=== PATIENT | female | born 1955 | race Caucasian/White ===

== ENCOUNTER 2016-11-09 21:01 | Emergency (ER) | payer OTHER ==
[~2016-11-09] VITALS: Ht 160 cm; Wt 51.7 kg
[~2016-11-09 21:01] MED LIST: MUCINEX DM 30/61 TAB PO; NICODERM21 MG/24 H TD; NKHM; PREDNISONE10 MG PO; PROAIR HFA0.09 MG/AC IH; SYMBICORT1 AE1 IH; ZITHROMAX Z-PA250 MG PO
[2016-11-09 23:31] LABS: BASO # 0.2 10*3/uL (0.0-0.1); BASO % 0.8 % (0.0-1.0); EOS # 0.1 10*3/uL (0.0-0.4); EOS % 0.4 % (1.0-4.0); HEMATOCRIT 41.5 % (37.0-47.0); HEMOGLOBIN 14.3 g/dl (12.0-16.0); IG # 0.1 10*3/uL (0.0-0.1); LYMPH # 1.7 10*3/uL (1.3-4.4); LYMPH % 9.5 % (27.0-41.0); MEAN CELL VOLUME 90.8 fl (81.0-99.0); MEAN CORPUSCULAR HGB 31.3 pg (27.0-31.0); MEAN CORPUSCULAR HGB CONC 34.5 g/dl (33.0-37.0); MEAN PLATELET VOLUME 8.9 fl (9.6-12.3); MONO % 5.4 % (3.0-9.0); NEUT # 14.9 10*3/uL (2.3-7.9); NEUT % 83.5 % (47.0-73.0); PLATELET COUNT AUTOMATED 404 10*3/uL (130-400); RED BLOOD COUNT 4.57 10*6/uL (4.10-5.10); WHITE BLOOD COUNT 17.8 10*3/uL (4.8-10.8)
[2016-11-09 23:44] LABS: BUN 5 mg/dl (7-24); CARBON DIOXIDE 28 mmol/L (21-32); CHLORIDE 94 mmol/L (98-107); EST GLOM FILT AFRICAN AMERICAN > 60 ml/min; POTASSIUM 3.3 mmol/L (3.5-5.1); SODIUM 130 mmol/L (136-145)
[2016-11-09 23:45] LABS: GLUCOSE 148 mg/dL (65-99)
== END 2016-11-10 02:41 | disposition short-term general hospital (02) ==
LOC: ED 21:01
PROVIDERS: Emergency Medicine Emergency Medical Services
DX: T18.108A Unspecified foreign body in esophagus causing other injury, initial encounter (principal); F17.200 Nicotine dependence, unspecified, uncomplicated; Z79.899 Other long term (current) drug therapy; X58.XXXA Exposure to other specified factors, initial encounter; Y93.89 Activity, other specified; Y92.9 Unspecified place or not applicable; Y99.9 Unspecified external cause status

== ENCOUNTER 2016-11-13 16:56 | Emergency (ER) | payer OTHER ==
[~2016-11-13] VITALS: Wt 37.6 kg
[2016-11-13] MEDS ORDERED: BREO ELLIPTA 11 EACH INH (17:19)
[2016-11-13] MEDS ORDERED: NOVAPLUS V0.09 MG/Ac INH (17:19)
[2016-11-13] MEDS ORDERED: TRAMADOL HCL50 MG PO (18:47)
== END 2016-11-13 20:46 | disposition home or self-care (01) ==
LOC: ED 16:56
DX: S42.021A Displaced fracture of shaft of right clavicle, initial encounter for closed fracture (principal); M25.511 Pain in right shoulder; M25.521 Pain in right elbow; F17.200 Nicotine dependence, unspecified, uncomplicated; W06.XXXA Fall from bed, initial encounter; Y93.89 Activity, other specified; Y92.89 Other specified places as the place of occurrence of the external cause; Y99.8 Other external cause status

== ENCOUNTER → 2016-11-18 | Outpatient (CLI) | payer OTHER ==
[~2016-11-18] MED LIST changes: +BREO ELLIPTA 11 EACH INH; +NOVAPLUS V0.09 MG/Ac INH; +TRAMADOL HCL50 MG PO
== END | disposition home or self-care (01) ==
LOC: ORTHO 12:07 → LAB 12:07
DX: M85.80 Other specified disorders of bone density and structure, unspecified site (principal)

== ENCOUNTER → 2016-12-17 | Outpatient (CLI) | payer OTHER | END | disposition home or self-care (01) | LOC: ORTHO 13:08 | DX: S42.024D Nondisplaced fracture of shaft of right clavicle, subsequent encounter for fracture with routine healing (principal); X58.XXXD Exposure to other specified factors, subsequent encounter ==

== ENCOUNTER → 2017-01-15 | Outpatient (CLI) | payer OTHER | END | disposition home or self-care (01) | LOC: ORTHO 02:25 | DX: S42.001D Fracture of unspecified part of right clavicle, subsequent encounter for fracture with routine healing (principal); X58.XXXD Exposure to other specified factors, subsequent encounter ==

== ENCOUNTER → 2017-02-12 | Outpatient (CLI) | payer OTHER | END | disposition home or self-care (01) | LOC: ORTHO 03:41 | DX: S42.021D Displaced fracture of shaft of right clavicle, subsequent encounter for fracture with routine healing (principal); X58.XXXD Exposure to other specified factors, subsequent encounter ==

== ENCOUNTER → 2017-03-12 | Outpatient (CLI) | payer OTHER | END | disposition home or self-care (01) | LOC: ORTHO 00:55 | DX: S42.024D Nondisplaced fracture of shaft of right clavicle, subsequent encounter for fracture with routine healing (principal); X58.XXXD Exposure to other specified factors, subsequent encounter ==

== ENCOUNTER → 2017-03-24 | Outpatient (CLI) | payer OTHER | END | disposition home or self-care (01) | LOC: RESCLI 01:45 | DX: J44.9 Chronic obstructive pulmonary disease, unspecified (principal); E55.9 Vitamin D deficiency, unspecified; R63.6 Underweight; I10 Essential (primary) hypertension; Z72.0 Tobacco use; Z71.6 Tobacco abuse counseling; H40.9 Unspecified glaucoma ==

== ENCOUNTER → 2017-04-13 | Outpatient (CLI) | payer OTHER | END | disposition home or self-care (01) | LOC: RESCLI 01:20 | DX: I10 Essential (primary) hypertension (principal); J44.9 Chronic obstructive pulmonary disease, unspecified; H40.9 Unspecified glaucoma; R63.6 Underweight; E55.9 Vitamin D deficiency, unspecified; Z71.6 Tobacco abuse counseling; Z72.0 Tobacco use ==

== ENCOUNTER → 2017-05-05 | Outpatient (CLI) | payer OTHER | END | disposition home or self-care (01) | LOC: ORTHO 00:58 | DX: S42.024D Nondisplaced fracture of shaft of right clavicle, subsequent encounter for fracture with routine healing (principal); X58.XXXD Exposure to other specified factors, subsequent encounter ==

== ENCOUNTER 2017-05-17 17:43 | Emergency (ER) | payer OTHER ==
[~2017-05-17] VITALS: Wt 36.3 kg
== END 2017-05-17 19:26 | disposition left against medical advice (07) ==
LOC: ED 17:43
DX: R53.1 Weakness (principal); R55 Syncope and collapse; F17.200 Nicotine dependence, unspecified, uncomplicated; Z98.42 Cataract extraction status, left eye; Z98.41 Cataract extraction status, right eye; Z79.899 Other long term (current) drug therapy

== ENCOUNTER → 2017-05-27 | Outpatient (CLI) | payer OTHER | END | disposition home or self-care (01) | LOC: ORTHO 09:09 → RAD 09:09 | DX: S42.021D Displaced fracture of shaft of right clavicle, subsequent encounter for fracture with routine healing (principal); M81.8 Other osteoporosis without current pathological fracture; M25.811 Other specified joint disorders, right shoulder; X58.XXXD Exposure to other specified factors, subsequent encounter ==

== ENCOUNTER → 2017-07-08 | Outpatient (CLI) | payer OTHER | END | disposition home or self-care (01) | LOC: ORTHO 07:46 | DX: S42.001D Fracture of unspecified part of right clavicle, subsequent encounter for fracture with routine healing (principal); R60.9 Edema, unspecified; X58.XXXD Exposure to other specified factors, subsequent encounter ==

== ENCOUNTER → 2017-07-08 | Outpatient (CLI) | payer OTHER | END | disposition home or self-care (01) | LOC: RESCLI 08:39 | DX: S42.024S Nondisplaced fracture of shaft of right clavicle, sequela (principal); S42.021S Displaced fracture of shaft of right clavicle, sequela; X58.XXXS Exposure to other specified factors, sequela ==

== ENCOUNTER → 2017-10-06 | Outpatient (CLI) | payer OTHER | END | disposition home or self-care (01) | LOC: RESCLI 01:26 | DX: I10 Essential (primary) hypertension (principal); J44.9 Chronic obstructive pulmonary disease, unspecified; E55.9 Vitamin D deficiency, unspecified; H40.9 Unspecified glaucoma; F17.210 Nicotine dependence, cigarettes, uncomplicated; R63.6 Underweight ==

== ENCOUNTER → 2018-01-06 | Outpatient (CLI) | payer OTHER | END | disposition home or self-care (01) | LOC: RESCLI 04:16 | DX: J44.9 Chronic obstructive pulmonary disease, unspecified (principal); I10 Essential (primary) hypertension; E55.9 Vitamin D deficiency, unspecified; R63.6 Underweight; F17.210 Nicotine dependence, cigarettes, uncomplicated; H91.13 Presbycusis, bilateral; Z53.20 Procedure and treatment not carried out because of patient's decision for unspecified reasons; Z71.6 Tobacco abuse counseling; Z79.899 Other long term (current) drug therapy ==

== ENCOUNTER → 2018-04-02 | Outpatient (CLI) | payer OTHER | END | disposition home or self-care (01) | LOC: RESCLI 01:03 | DX: J44.9 Chronic obstructive pulmonary disease, unspecified (principal); I10 Essential (primary) hypertension; H40.9 Unspecified glaucoma; I73.9 Peripheral vascular disease, unspecified; R63.6 Underweight; E55.9 Vitamin D deficiency, unspecified; R20.2 Paresthesia of skin; F17.200 Nicotine dependence, unspecified, uncomplicated; Z71.6 Tobacco abuse counseling; Z79.899 Other long term (current) drug therapy ==

== ENCOUNTER → 2018-04-05 | Outpatient (CLI) | payer OTHER ==
[2018-04-05 13:27] LABS: BASO # 0.2 10*3/uL (0.0-0.1); BASO % 2.1 % (0.0-1.0); EOS # 0.4 10*3/uL (0.0-0.4); EOS % 5.2 % (1.0-4.0); HEMOGLOBIN 11.6 g/dl (12.0-16.0); LYMPH # 1.9 10*3/uL (1.3-4.4); LYMPH % 25.8 % (27.0-41.0); MEAN CELL VOLUME 98.1 fl (81.0-99.0); MEAN CORPUSCULAR HGB 31.6 pg (27.0-31.0); MEAN CORPUSCULAR HGB CONC 32.2 g/dl (33.0-37.0); MEAN PLATELET VOLUME 8.3 fl (9.6-12.3); MONO # 0.6 10*3/uL (0.1-1.0); NEUT # 4.4 10*3/uL (2.3-7.9); NEUT % 58.6 % (47.0-73.0); PLATELET COUNT AUTOMATED 607 10*3/uL (130-400); RED BLOOD COUNT 3.67 10*6/uL (4.10-5.10); RED CELL DISTRI WIDTH 14.7 % (0-14.5); WHITE BLOOD COUNT 7.5 10*3/uL (4.8-10.8)
[2018-04-05 13:49] LABS: BUN 6 mg/dl (7-24); CHLORIDE 102 mmol/L (98-107); CHOLESTEROL 233 mg/dL (<200); CREATININE 0.63 mg/dL (0.55-1.02); HDL CHOLESTEROL 54 mg/dl (40-60); LDL CHOLESTEROL 148 mg/dL (9-159); POTASSIUM 4.1 mmol/L (3.5-5.1); SODIUM 133 mmol/L (136-145); TRIGLYCERIDES 156 mg/dl (<150); VLDL CHOLESTEROL 31 mg/dL (6-40)
== END | disposition home or self-care (01) ==
LOC: LAB 12:47
PROVIDERS: Internal Medicine
DX: I10 Essential (primary) hypertension (principal); E55.9 Vitamin D deficiency, unspecified; I73.9 Peripheral vascular disease, unspecified; R20.2 Paresthesia of skin; J44.9 Chronic obstructive pulmonary disease, unspecified; Z79.899 Other long term (current) drug therapy

== ENCOUNTER → 2018-04-09 | Outpatient (CLI) | payer OTHER ==
[~2018-04-09] MED LIST changes: +AMOXICILLIN500 M2 PO; +FLUCONAZOLE100 MG PO; +Ipratropium Brom3 ML NEB; +LEVOFLOXACIN500 MG PO; +LIPITOR10 MG PO; +MUCINEX ER600 MG PO; +PRINIVIL10 MG PO
== END | disposition home or self-care (01) ==
LOC: RESCLI 03:30
DX: I73.9 Peripheral vascular disease, unspecified (principal); I10 Essential (primary) hypertension; J44.9 Chronic obstructive pulmonary disease, unspecified; E55.9 Vitamin D deficiency, unspecified; E78.2 Mixed hyperlipidemia; F17.210 Nicotine dependence, cigarettes, uncomplicated; Z71.6 Tobacco abuse counseling; Z79.899 Other long term (current) drug therapy

== ENCOUNTER 2018-04-18 23:43 | Inpatient (IN) | payer OTHER ==
[~2018-04-18] VITALS: Ht 144.8 cm; Wt 34.0 kg
--- NOTE | ~2018-04-18 | EKG ---
[place], [place] ELECTROCARDIOGRAM REPORT NAME: JARAD SO UNIT #: [id number] ROOM: 421 DOCTOR: PRAFUL DRAFT REPORT BIRTHDATE: [address] [facility] Test Date: 2018-04-19 Test Time: 00:01:55 Pat Name: JARAD SO Department: Room: 421 Gender: F Healthcare Receptionist: Tunde Patricia : 1955 Requested By: SANDRA BRIGGS Order Number: [id number] Reading MD: Zeinab Torres MD Measurements Intervals [place] Rate: 116 P: 82 AL: 165 QRS: 7 QRSD: 76 T: 64 QT: 285 QTc: 396 Interpretive Statements Sinus tachycardia Anterior infarct, old Electronically Signed On 04-19-2018 7:54:09 PST by Zeinab Torres MD CM:EKGRPT:ELECTROCARDIOGRAM REPORT [id number] SANDRA PEREZ DRAFT REPORT SANDRA BRIGGS DO
[~2018-04-18 23:43] MED LIST changes: -AMOXICILLIN500 M2 PO; -FLUCONAZOLE100 MG PO; -Ipratropium Brom3 ML NEB; -LEVOFLOXACIN500 MG PO; -LIPITOR10 MG PO; -MUCINEX ER600 MG PO; -PRINIVIL10 MG PO
[2018-04-18 23:48] VITALS: BP 175/83
[2018-04-18] MEDS ORDERED: PRINIVIL10 MG PO (23:56)
[2018-04-18] MEDS ORDERED: LIPITOR10 MG PO (23:57)
[2018-04-18] MEDS ORDERED: AMOXICILLIN500 M2 PO (23:58)
[2018-04-19] VITALS (11 sets, daily range): BP systolic 88–154; BP diastolic 50–77
[2018-04-19 00:11] LABS: BASO # 0.1 10*3/uL (0.0-0.1); BASO % 0.9 % (0.0-1.0); EOS # 0.3 10*3/uL (0.0-0.4); HEMATOCRIT 34.1 % (37.0-47.0); HEMOGLOBIN 11.5 g/dl (12.0-16.0); MEAN CELL VOLUME 96.1 fl (81.0-99.0); MEAN CORPUSCULAR HGB 32.4 pg (27.0-31.0); MEAN CORPUSCULAR HGB CONC 33.7 g/dl (33.0-37.0); MEAN PLATELET VOLUME 8.5 fl (9.6-12.3); MONO % 7.4 % (3.0-9.0); NEUT # 9.9 10*3/uL (2.3-7.9); NEUT % 74.4 % (47.0-73.0); PLATELET COUNT AUTOMATED 501 10*3/uL (130-400); RED BLOOD COUNT 3.55 10*6/uL (4.10-5.10); RED CELL DISTRI WIDTH 14.5 % (0-14.5); WHITE BLOOD COUNT 13.3 10*3/uL (4.8-10.8)
--- NOTE | 2018-04-19 00:11 | NUR ---
PT STATES "I FEEL LIKE I CAN BREATH FINALLY"
[2018-04-19 00:21] LABS: ACT PARTIAL THROMBO TIME 26.5 SECONDS (20.8-31.5); INTERNATIONAL NORM RATIO 0.9 (2.0-3.5)
[2018-04-19 00:28] LABS: ALBUMIN 3.6 gm/dl (3.1-4.5); ALKALINE PHOSPHATASE 125 U/L (45-117); BUN 5 mg/dl (7-24); CHLORIDE 93 mmol/L (98-107); POTASSIUM 3.4 mmol/L (3.5-5.1); SGOT/AST 28 IU/L (3-35); SGPT/ALT 16 U/L (12-78); SODIUM 127 mmol/L (136-145); TOTAL PROTEIN 7.7 gm/dL (6.4-8.2)
[2018-04-19 00:30] LABS: TROPONIN I < 0.015 ng/ml (<0.045)
[2018-04-19 01:42] LABS: ABG BASE EXCESS -4.6 mmol/L (-2.0-2.0); ABG HCO3 20.3 mmol/l (22-26); ABG O2 SATURATION 75.5 % (95-97); ARTERIAL BLOOD GAS PH 7.336 (7.35-7.45); ARTERIAL BLOOD GAS PO2 45.2 mmHg (80-90)
--- NOTE | 2018-04-19 01:51 | NUR ---
PATIENT TO CT AT THIS TIME.
--- NOTE | 2018-04-19 02:44 | NUR ---
IV SITE TO LEFT AC LEAKING. SITE REMOVED AND NEW SITE INITIATED.
--- NOTE | 2018-04-19 04:25 | NUR ---
A 62, admitted to , under the services of SARITA Tapia DO with a diagnosis of COPD. Chief complaint is SOB, COUGH. Patient arrived via stretcher from ER. Monitor applied. Initial assessment completed. Vital signs taken and recorded. SARITA TAPIA DO notified of admission to the unit. Orders received. See assessment for past medical history, medications and allergies. Patient and/or family oriented to unit. [facility]. Clothing/patient valuable form completed. MARK ORTEGA
--- NOTE | 2018-04-19 04:45 | NUR ---
HOME MEDS UPDATED WITH PT
--- NOTE | 2018-04-19 05:00 | NUR ---
DR MARTINEZ NOTIFIED OF CRITICAL TROPONIN
[2018-04-19 06:29] LABS: HEMATOCRIT 30.7 % (37.0-47.0); HEMOGLOBIN 10.4 g/dl (12.0-16.0); MEAN CELL VOLUME 96.5 fl (81.0-99.0); MEAN CORPUSCULAR HGB 32.7 pg (27.0-31.0); MEAN CORPUSCULAR HGB CONC 33.9 g/dl (33.0-37.0); MEAN PLATELET VOLUME 8.5 fl (9.6-12.3); PLATELET COUNT AUTOMATED 434 10*3/uL (130-400); RED BLOOD COUNT 3.18 10*6/uL (4.10-5.10); RED CELL DISTRI WIDTH 14.4 % (0-14.5); WHITE BLOOD COUNT 8.8 10*3/uL (4.8-10.8)
--- NOTE | 2018-04-19 06:35 | NUR ---
CALLED DR HOPPER ANSWERING SERVICE REGARDING NEW CONSULT
[2018-04-19 06:47] LABS: ALKALINE PHOSPHATASE 96 U/L (45-117); BUN 5 mg/dl (7-24); CHLORIDE 97 mmol/L (98-107); CHOLESTEROL 147 mg/dL (<200); CREATININE 0.54 mg/dL (0.55-1.02); FREE T4 0.92 ng/dl (0.76-1.46); HDL CHOLESTEROL 68 mg/dl (40-60); LDL CHOLESTEROL 72 mg/dL (9-159); PHOSPHOROUS 2.7 mg/dL (2.5-4.9); SGOT/AST 23 IU/L (3-35); SGPT/ALT 17 U/L (12-78); SODIUM 128 mmol/L (136-145); TOTAL PROTEIN 6.6 gm/dL (6.4-8.2); TRIGLYCERIDES 37 mg/dl (<150); VLDL CHOLESTEROL 7 mg/dL (6-40)
[2018-04-19 06:52] LABS: THYROID STIM HORMONE (HS) 0.781 uIU/ml (0.358-4.75)
--- NOTE | 2018-04-19 06:53 | NUR ---
DR MARTINEZ NOTIFIED OF CRITICAL TROPONIN
[2018-04-19 07:12] LABS: BASOPHILS 2 % (0-1); TOTAL CELLS COUNTED 100 #CELLS
[2018-04-19 07:13] LABS: PLATELET SUFFICIENCY HIGH (NORMAL)
[2018-04-19 08:38] LABS: VITAMIN D, 25-HYDROXY 147.9 ng/mL (30-100)
--- NOTE | 2018-04-19 09:00 | NUR ---
[facility] [place] Room in to talk to patient. Patient states lives at home with . There are [employer] steps in the home. Physician: [facility]: none Patient's level of ADLs: INDEPENDENT Patient has working utilities: all working DME: none Follow-up physician's appointment after d/c: will be made by hospitalist nurse director upon discharge Does patient want to access PORTAL?: no Discharge plan discussed with patient, patient states she lives at home with , patient states she will be going home when able and denies any home needs. MARISOL PICKETT
--- NOTE | 2018-04-19 09:13 | NUR ---
PHYSICAL THERAPY PAtient with Doctor at this time. Apple Nunn,PT
--- NOTE | 2018-04-19 11:49 | NUR ---
PHYSICAL THERAPY PAtient respectfully declines PT this date. Very fatigued, ill and just admitted. Thank you for this referral. Apple Nunn,PT
--- NOTE | 2018-04-19 20:00 | NUR ---
RESTING IN BED WITH EYES CLOSED. HOB ELEVATED TO FACILITATE EASE OF BREATHING. PULSE OX 99% ON 5LPM VIA NASAL CANNULA. LUNGS WITH SOME SCATTERED WHEEZES & DIMINISHED BILATERALLY. MOIST NONPRODUCTIVE COUGH NOTED. PT. VOICES NO C/O AT THIS TIME. CALL LIGHT WITHIN REACH.
[2018-04-20] VITALS: BP 125/64
--- NOTE | 2018-04-20 01:00 | NUR ---
ASSISTED UP TO BATHROOM. PT. STEADY; VERY FRAIL. ASSISTED BACK TO BED WITHOUT DIFFICULTY; BED ALARM INTACT & BED IN LOW POSITION. CALL LIGHT WITHIN REACH.
[2018-04-20 06:14] LABS: HEMATOCRIT 29.2 % (37.0-47.0); HEMOGLOBIN 9.7 g/dl (12.0-16.0); MEAN CORPUSCULAR HGB 32.2 pg (27.0-31.0); MEAN CORPUSCULAR HGB CONC 33.2 g/dl (33.0-37.0); MEAN PLATELET VOLUME 8.4 fl (9.6-12.3); PLATELET COUNT AUTOMATED 401 10*3/uL (130-400); RED BLOOD COUNT 3.01 10*6/uL (4.10-5.10); RED CELL DISTRI WIDTH 14.6 % (0-14.5); WHITE BLOOD COUNT 13.9 10*3/uL (4.8-10.8)
--- NOTE | 2018-04-20 06:30 | NUR ---
RESTING IN BED WITH EYES CLOSED; IV FLUIDS INFUSING WITHOUT DIFFICULTY. 02 REMAINS INTACT. CALL LIGHT WITHIN REACH.
[2018-04-20 06:32] LABS: PLATELET SUFFICIENCY NORMAL (NORMAL); TOTAL CELLS COUNTED 100 #CELLS
[2018-04-20 06:39] LABS: BUN 4 mg/dl (7-24); CHLORIDE 102 mmol/L (98-107); CREATININE 0.37 mg/dL (0.55-1.02); POTASSIUM 3.9 mmol/L (3.5-5.1); SODIUM 134 mmol/L (136-145)
[2018-04-20 09:58] VITALS: BP 128/58
[2018-04-20 12:00] VITALS: BP 133/61
--- NOTE | 2018-04-20 15:04 | NUR ---
PT IS RESTING IN BED AT THIS TIME WITH HER AT THE BEDSIDE. SHE HAS NO COMPLAINTS OF PAIN OR DISCOMFORT AT THIS TIME. SHE IS CURRENTLY SINUS TACHY ON THE MONITOR WITH A HEART RATE OF 104. BED IS IN LOWEST POSITION AND CALL LIGHT IS WITHIN REACH. WILL CONTINUE TO MONITOR PT.
[2018-04-20 16:00] VITALS: BP 115/58
[2018-04-20 20:00] VITALS: BP 118/52
--- NOTE | 2018-04-20 23:46 | NUR ---
24 HR chart check completed.
[2018-04-21] VITALS: BP 149/64
--- NOTE | 2018-04-21 | NUR ---
RESTING IN BED WATCHING TV, NO DISTRESS NOTED. RESPIRATIONS EASY. LUNGS DIMINISHED WITH WHEEZES. PULSE OX 95% 2L. CALL LIGHT WITHIN REACH. NO VOICED COMPLAINTS
--- NOTE | 2018-04-21 03:30 | NUR ---
RESTING WITH EYES CLOSED
--- NOTE | 2018-04-21 06:00 | NUR ---
RESTED THROUGHOUT NIGHT WITH NO DISTRESS NOTED. RESPIRATIONS EASY. CALL LIGHT WITHIN REACH. NO VOICED COMPLAINTS THIS SHIFT
[2018-04-21 08:00] VITALS: BP 126/62
--- NOTE | 2018-04-21 09:00 | NUR ---
case management visits with patient, patient will be going home when able and denies any home needs
--- NOTE | 2018-04-21 11:15 | NUR ---
HR WENT INTO 140'S WHEN WALKING. DR MELENDEZ NOTIFIED.
--- NOTE | 2018-04-21 11:20 | NUR ---
patient was assesed for home oxygen. at rest the patient on room air was at HR 112, [id number]% BP- 157/90. before ambulation just standing up out of bed. the patient's SPO2 dropped to 85-86%. i placed the patient on 2lnc and their SPO2 went up to 90-92%. during ambulation the patient was able to maintain at 92%. patient placed on 3LNC to make sure reading was correct, the patient was able to get 94-95% on that 3LNC. so the patient does qualify for home O2 use. after ambulation vital HR 140 SPO2:93% BP 157/70.
[2018-04-21 12:30] VITALS: BP 122/60
[2018-04-21 16:00] VITALS: BP 124/49; BP 134/50
[2018-04-21 20:00] VITALS: BP 145/70
--- NOTE | 2018-04-21 21:00 | NUR ---
HS MEDICATIONS TAKEN WITH EASE BY PT. PT IV SITE FLUSHING WELL. IV ANTIBIOTICS INFUSING PER ORDER. ASSESSMENT COMPLETE AT THIS TIME. WHEEZING HEARD UPON AUSCULTATION OF LUNGS. PT STATES THAT SHE IS FEELING MUCH BETTER AND IS EXCITED TO GO HOME TOMORROW. RESPIRATIONS UNLABORED ON 3L NC. WILL CONTINUE TO MONITOR. CALL LIGHT IN REACH.
[2018-04-21 23:40] VITALS: BP 142/76
[2018-04-22] VITALS: BP 176/91
--- NOTE | 2018-04-22 06:02 | NUR ---
PT GIVEN AM MEDICATIONS AT THIS TIME. RESPIRATIONS EASY AND UNLABORED WITH NO COMPLAINTS VOICED. PT MOOD PLEASANT. WILL CONTINUE TO MONITOR. CALL LIGHT IN REACH.
[2018-04-22 06:32] LABS: BASO % 0.1 % (0.0-1.0); EOS # 0.1 10*3/uL (0.0-0.4); EOS % 0.4 % (1.0-4.0); HEMATOCRIT 30.3 % (37.0-47.0); HEMOGLOBIN 9.9 g/dl (12.0-16.0); LYMPH # 0.9 10*3/uL (1.3-4.4); LYMPH % 7.4 % (27.0-41.0); MEAN CELL VOLUME 96.8 fl (81.0-99.0); MEAN CORPUSCULAR HGB 31.6 pg (27.0-31.0); MEAN CORPUSCULAR HGB CONC 32.7 g/dl (33.0-37.0); MONO % 7.9 % (3.0-9.0); NEUT # 10.6 10*3/uL (2.3-7.9); NEUT % 83.5 % (47.0-73.0); PLATELET COUNT AUTOMATED 446 10*3/uL (130-400); RED BLOOD COUNT 3.13 10*6/uL (4.10-5.10); RED CELL DISTRI WIDTH 14.5 % (0-14.5); WHITE BLOOD COUNT 12.7 10*3/uL (4.8-10.8)
[2018-04-22 06:55] LABS: BUN 7 mg/dl (7-24); CHLORIDE 100 mmol/L (98-107); CREATININE 0.43 mg/dL (0.55-1.02); POTASSIUM 3.5 mmol/L (3.5-5.1); SODIUM 136 mmol/L (136-145)
--- NOTE | 2018-04-22 07:53 | NUR ---
IN BED AWAKE ALERT AND ORIENTED X3, NO C/O, WILL CONT TO MONITOR. CALL LIGHT IN REACH. SEE ASSESS.
[2018-04-22 08:00] VITALS: BP 130/73
[2018-04-22] MEDS ORDERED: LEVOFLOXACIN500 MG PO (08:37)
[2018-04-22] MEDS ORDERED: PREDNISONE10 MG PO (08:37)
[2018-04-22] MEDS ORDERED: MUCINEX ER600 MG PO (08:37)
[2018-04-22] MEDS ORDERED: FLUCONAZOLE100 MG PO (08:37)
[2018-04-22] MEDS ORDERED: Ipratropium Brom3 ML NEB (08:47)
--- NOTE | 2018-04-22 09:00 | NUR ---
case management visits with patient, patient will be going home today, discussed with her VNA and she was receptive to this, given choice of companies she chose [facility]. referral sent to [facility]. also discussed with patient a DME company for her nebulizer, patient chose [facility], script and patient's information sent to [facility], case management will follow
[2018-04-22 12:00] VITALS: BP 144/54
--- NOTE | 2018-04-22 12:36 | NUR ---
PHYSICAL THERAPY PAtient to be discharged this date. Apple Nunn,PT
--- NOTE | 2018-04-22 12:42 | NUR ---
Patient discharged home with [facility], referral faxed
--- NOTE | 2018-04-22 14:41 | NUR ---
PT DISCHARGED AT THIS TIME. IV REMOVED AND PRESSURE DRESSING APPLIED. HEART MONITOR RETURNED TO FLOOR. VERBALIZED UNDERSTANDING OF DISCHARGE INSTRUCTIONS.
== END 2018-04-22 14:41 | disposition home health service (06) | DRG 871 ==
LOC: ED 23:43 → 4E 04-19 03:18 → EDHOLD 04-19 03:18 → 4E 04-19 03:20
PROVIDERS: Family Medicine; Internal Medicine; Student in an Organized Health Care Education/Training Program; ADMIT Emergency Medicine
DX: A41.9 Sepsis, unspecified organism (principal); R65.20 Severe sepsis without septic shock; J18.9 Pneumonia, unspecified organism; J96.91 Respiratory failure, unspecified with hypoxia; E87.1 Hypo-osmolality and hyponatremia; E44.1 Mild protein-calorie malnutrition; I24.8 Other forms of acute ischemic heart disease; R91.1 Solitary pulmonary nodule; I10 Essential (primary) hypertension; E78.5 Hyperlipidemia, unspecified; D64.9 Anemia, unspecified; E87.8 Other disorders of electrolyte and fluid balance, not elsewhere classified; J43.9 Emphysema, unspecified; D47.3 Essential (hemorrhagic) thrombocythemia; E87.6 Hypokalemia; R74.8 Abnormal levels of other serum enzymes; Z72.0 Tobacco use; Z68.1 Body mass index [BMI] 19.9 or less, adult; Z71.6 Tobacco abuse counseling; Z91.81 History of falling; Z82.49 Family history of ischemic heart disease and other diseases of the circulatory system; Z80.9 Family history of malignant neoplasm, unspecified; Z79.899 Other long term (current) drug therapy

== ENCOUNTER → 2018-05-04 | Outpatient (CLI) | payer OTHER ==
[~2018-05-04] MED LIST changes: +AMOXICILLIN500 M2 PO; +FLUCONAZOLE100 MG PO; +Ipratropium Brom3 ML NEB; +LEVOFLOXACIN500 MG PO; +LIPITOR10 MG PO; +MUCINEX ER600 MG PO; +PRINIVIL10 MG PO
== END | disposition home or self-care (01) ==
LOC: RESCLI 09:29
DX: J44.9 Chronic obstructive pulmonary disease, unspecified (principal); E55.9 Vitamin D deficiency, unspecified; S42.024D Nondisplaced fracture of shaft of right clavicle, subsequent encounter for fracture with routine healing; S42.021K Displaced fracture of shaft of right clavicle, subsequent encounter for fracture with nonunion; I10 Essential (primary) hypertension; H40.9 Unspecified glaucoma; I73.9 Peripheral vascular disease, unspecified; F17.210 Nicotine dependence, cigarettes, uncomplicated; R63.6 Underweight; R20.2 Paresthesia of skin; E78.2 Mixed hyperlipidemia; R91.8 Other nonspecific abnormal finding of lung field; I24.8 Other forms of acute ischemic heart disease; R11.0 Nausea; Z79.899 Other long term (current) drug therapy; X58.XXXD Exposure to other specified factors, subsequent encounter

== ENCOUNTER 2018-05-06 10:45 | Emergency (ER) | payer OTHER ==
[~2018-05-06] VITALS: Wt 49.9 kg
--- NOTE | ~2018-05-06 | EKG ---
[place], [place] ELECTROCARDIOGRAM REPORT NAME: JARAD SO UNIT #: [id number] ROOM: DOCTOR: EPIPHANY DRAFT REPORT BIRTHDATE: [birth year] [facility] Test Date: 2018-05-06 Test Time: 10:51:24 Pat Name: JARAD SO Department: ER Room: 4 Gender: F Continuous Process [employer]ary [employer] Tanner: : 1955 Requested By: DONNA DUPREE Order Number: [id number] Reading MD: Dejon Williamson MD Measurements Intervals [place] Rate: 104 P: 90 NV: 156 QRS: 48 QRSD: 69 T: 81 QT: 345 QTc: 454 Interpretive Statements Sinus tachycardia Right atrial enlargement Probable LVH with secondary repol abnrm Compared to ECG 04/19/2018 00:01:55 Atrial abnormality now present Myocardial infarct finding no longer present Electronically Signed On 05-06-2018 17:29:20 PST by Dejon Williamson MD CM:EKGRPT:ELECTROCARDIOGRAM REPORT [id number] DONNA BASILIO DRAFT REPORT DONNA DUPREE M.D.
[2018-05-06 11:36] LABS: ABG HCO3 16.1 mmol/l (22-26); ABG O2 SATURATION 98.5 % (95-97); ARTERIAL BLOOD GAS PCO2 28.2 mmHg (35-45); ARTERIAL BLOOD GAS PH 7.368 (7.35-7.45)
[2018-05-06 11:37] LABS: ABG BASE EXCESS -8.1 mmol/L (-2.0-2.0)
[2018-05-06 12:07] LABS: HEMATOCRIT 29.1 % (37.0-47.0); HEMOGLOBIN 10.3 g/dl (12.0-16.0); MEAN CELL VOLUME 93.3 fl (81.0-99.0); MEAN CORPUSCULAR HGB CONC 35.4 g/dl (33.0-37.0); MEAN PLATELET VOLUME 8.1 fl (9.6-12.3); PLATELET COUNT AUTOMATED 609 10*3/uL (130-400); RED BLOOD COUNT 3.12 10*6/uL (4.10-5.10); RED CELL DISTRI WIDTH 13.8 % (0-14.5); WHITE BLOOD COUNT 29.3 10*3/uL (4.8-10.8)
[2018-05-06 12:07] LABS: BILIRUBIN 1+ (NEGATIVE); BLOOD NEGATIVE (NEGATIVE); CLARITY CLEAR (CLEAR); COLOR YELLOW (YELLOW); GLUCOSE NEGATIVE (NEGATIVE); KETONE 2+ (NEGATIVE); LEUKO ESTERASE NEGATIVE (NEGATIVE); NITRITE NEGATIVE (NEGATIVE)
[2018-05-06 12:24] LABS: ALBUMIN 2.8 gm/dl (3.1-4.5); ALKALINE PHOSPHATASE 88 U/L (45-117); BUN 16 mg/dl (7-24); CHLORIDE 81 mmol/L (98-107); CREATININE 0.83 mg/dL (0.55-1.02); POTASSIUM 3.9 mmol/L (3.5-5.1); SGOT/AST 24 IU/L (3-35); SGPT/ALT 16 U/L (12-78)
[2018-05-06 12:25] LABS: TOTAL CELLS COUNTED 100 #CELLS
[2018-05-06 12:26] LABS: BACTERIA 1+
[2018-05-06 12:26] LABS: BURR CELLS FEW; PLATELET SUFFICIENCY HIGH (NORMAL); TOXIC GRANULATION MODERATE; VACUOLATION OF NEUTROPHILS SLIGHT
[2018-05-06 12:30] LABS: SODIUM 114 mmol/L (136-145)
== END 2018-05-06 17:50 | disposition short-term general hospital (02) ==
LOC: ED 10:45
PROVIDERS: Emergency Medicine
DX: E87.1 Hypo-osmolality and hyponatremia (principal); J44.1 Chronic obstructive pulmonary disease with (acute) exacerbation; R56.9 Unspecified convulsions; E78.5 Hyperlipidemia, unspecified; I10 Essential (primary) hypertension; F17.200 Nicotine dependence, unspecified, uncomplicated; Z79.2 Long term (current) use of antibiotics; Z79.899 Other long term (current) drug therapy